=== PATIENT | male | born 1955 | race Caucasian/White ===

== ENCOUNTER 2018-06-14 05:44 | Inpatient (IN) ==
[2018-06-14] MEDS ORDERED: Chlorhexidine Gluconate 2% 1 Pack (2 Cloths) TOPICAL ONE (06:06)
[2018-06-14] MEDS ORDERED: Chlorhexidine 4% Topical 120 APPLIC/120 ML Bottle TOPICAL SCH (06:15)
[2018-06-14] MEDS ORDERED: Bisacodyl 10 MG Supp RECTAL PRN (06:54)
[2018-06-14] MEDS ORDERED: Zolpidem Tartrate 5 MG Tablet PO PRN (06:54)
[2018-06-14] MEDS ORDERED: Post-op Orders (for Pharmacy) OTHER STA (06:54)
[2018-06-14] MEDS ORDERED: HYDROmorphone PF Inj 1 MG/ML Ampul IV.PUSH PRN (06:54)
[2018-06-14] MEDS ORDERED: Vancomycin Inj 1,000 MG in Sodium Chlor 0.9% Inj 250 ML IV.SIG SCH (07:00)
[2018-06-14] MEDS ORDERED: Dexamethasone Inj 20 MG/5 ML Vial IV.PUSH SCH (07:00)
[2018-06-14] MEDS ORDERED: ceFAZolin 2 GM Premix Inj 2 GM/50 ML PIGGYBACK IV.SIG SCH (07:00)
[2018-06-14] MEDS ORDERED: Sodium Chlor 0.9% Inj 500 ML IV.SIG SCH (07:00)
[2018-06-14] MEDS ORDERED: fentaNYL Citrate Inj 250 MCG/5 ML Ampul ONE (07:08)
[2018-06-14] MEDS ORDERED: Morphine Inj 4 MG/ML Vial ONE (07:08)
[2018-06-14] MEDS ORDERED: Propofol Inj 500 MG/50 ML Vial ONE (07:24)
[2018-06-14] MEDS ORDERED: Sodium Chlor 0.9% Inj 100 ML, Tranexamic Acid Inj 3,000 MG P-ARTICULR SCH ×2 (08:30)
[2018-06-14] MEDS ORDERED: Tranexamic Acid Inj 1,035 MG in Sodium Chlor 0.9% Inj 100 ML IV.SIG SCH (08:30)
[2018-06-14] MEDS ORDERED: Sodium Chlor 0.9% Inj 40 ML, Bupivacaine Liposo PF 1.3% Inj 20 ML P-ARTICULR SCH ×2 (08:30)
--- NOTE | 2018-06-14 10:01 | P.OP ---
Procedure: PREOPERATIVE DIAGNOSIS: Right hip osteoarthritis. POSTOPERATIVE DIAGNOSIS: Right hip osteoarthritis. PROCEDURE PERFORMED: Right total hip arthroplasty. SURGEON: Dr. Gerard Drew M.D. SUPPLY ANALYST: ROCIO Townsend. ANESTHESIA: General. ESTIMATED BLOOD LOSS: 250 mL. COMPLICATIONS: None. IMPLANTS USED: Depuy Corail femoral stem 13 standard Nogal Gripsion Cup [] 56 Poly insert liner neutral [] 36 x 56 femoral head [] 36 mm ceramic neck length [] +5 JUSTIFICATION: This patient presents to the undersigned at the orthopedic clinic with chief complaints of severe Right hip pain. The pain is severe and constant and interferes with activities of daily living. The patient has failed greater than 3 months of nonoperative conservative treatment to include analgesic and nonsteroidal anti-inflammatory medications, physical therapy, cortisone injections, activity modification, weight loss, home exercise program, and use of ambulatory assistive aids. X-rays of right hip reveal severe osteoarthritis with [id number] joint space narrowing, subchondral sclerosis, subchondral cysts, osteophyte formation with subluxation. The patient was counseled on risks, benefits, and alternatives to a total hip arthroplasty. The risks were discussed, which include, but are not limited to, anesthesia, bleeding, infection, damage to nerves and blood vessels , pain, stiffness, fracture, dislocations, leg length discrepancy, failure of components, blood clots, pulmonary embolus, and even . The patient favored the benefits over the risks, did wish to proceed with surgery. PROCEDURE IN DETAIL: Written consent was obtained. The patient was identified by name, taken to the operating room and placed supine on the operating table. General anesthesia was administered. The patient was preoperative IV antibiotics. The patient right and left feet were placed in the padded traction boots. The right hip and lower extremity was then prepped and draped using isopropyl alcohol, Hibiclens solution and ChloraPrep solution. After a timeout was performed, a longitudinal incision was made over the anterior aspect of the right hip. The fascia vero was incised. Dissection was carried over the tensor fascia vero beneath the rectus femoris. After exposure of the anterior capsule, a capsulotomy incision was performed. An oscillating saw was used to perform a femoral neck cut. The osteoarthritic femoral head and neck was removed. A 10 blade scalpel was used to excise the labrum. Sequential reaming of the acetabulum was performed. Subsequently a porous-coated titanium acetabular cup was implanted in a press manner in approximately 45 degrees of abduction and 10 degrees of anteversion. There was good purchase and fixation after insertion of the acetabular cup. The cup was tested manually and noted to have excellent stability and fixation. A neutral highly cross-linked polyethylene liner was placed within the cup. The liner was impacted in place for fixation and tested for stability. Attention was turned to the femur where the leg was externally rotated, extended and adducted. The capsule was released off the undersurface of the greater trochanter to allow for elevation and lateralization of the femur. A box cutting osteotome was used to gain entrance into the intramedullary canal of the femur. This was followed by a canal finder and sequential broaching. A calcar planer to plane the calcar. A trial head and neck combination were evaluated prior to implantation of final components. With the final implants placed, the leg could achieve external rotation of 70 degrees and extension to the the ground without evidence of anterior instability or impingement. Soft tissue tension felt appropriate. Fluoroscopic imaging showed appropriate implantation of components. The Surgical wound was thoroughly irrigated with sterile saline Pulse Lavage antibiotic impregnated solution. The fascial layer was closed with #1 Vicryl suture, subcutaneous layer with 2-0 Vicryl sutures. The skin was closed with Dermabond. Sterile dressing applied. No intraoperative complications noted. Mann Ruffin, Physician Farm Labor Contractor, Certified was present for the entire procedure to include the patient position, the procedure itself. The medical necessity of a physician project assistant was indicated in this case due to the complexity of the procedure. He assisted with position of the patient along with the ear itself. During the procedure he assisted with exposure and the retraction of muscle, tendon, bone, and neurovascular vessel structures. He assisted with the preparation of bone and also implantation of the prosthetic replacement. There was a electroplating technician in the room that assisted with management of instruments, but was not available to assist with the surgery itself. Gerard Myoer MD Surgeon: Gerard Moyer MD
--- NOTE | 2018-06-14 11:40 | XR ---
EXAM DATE: 06/14/2018 11:28 AM EST AGE/SEX: 62 years / Male INDICATIONS: Post-op total right hip arthroplasty. CLINICAL DATA: This is the patient's initial encounter. Patient reports that signs and symptoms have been present for 1 day and indicates a pain score of 0/10. MEDICAL/SURGICAL HISTORY: None. None. COMPARISON: No prior exams available for comparison. FINDINGS: The patient is status post a total hip arthroplasty. Prosthesis is well-seated. Alignment is anatomic . A fracture is not appreciated. CONCLUSION: Anatomic alignment. Preston Stokes MD FACR Electronically signed by: Preston Stokes MD Board Certified Radiologist 06/14/2018 11:39 AM EST
[2018-06-14] MEDS ORDERED: *morphine SULFATE 4 MG/ML PERIprocedure ONLY ONE (12:16)
[2018-06-14] MEDS ORDERED: Atropine Inj 1 MG/10 ML Syringe ONE (12:46)
[2018-06-14] MEDS ORDERED: Glycopyrrolate 0.2 MG/ML Vial ONE (12:46)
--- NOTE | 2018-06-14 13:42 | XR ---
EXAM DATE: 06/14/2018 1:38 PM EST AGE/SEX: 62 years / Male INDICATIONS: Right total hip arthroplasty. CLINICAL DATA: This is the patient's initial encounter. Patient reports that signs and symptoms have been present for 1 day and indicates a pain score of Nonresponsive. MEDICAL/SURGICAL HISTORY: Non-responsive. Non-responsive. COMPARISON: No prior exams available for comparison. FINDINGS: [facility] intraoperative views of the right hip show total arthroplasty. Femoral and acetabular components are appropriately positioned without fracture or dislocation. CONCLUSION: Appropriate postoperative appearance of the right hip status post total arthroplasty. Electronically signed by: Micheal Rose MD Board Certified Radiologist 06/14/2018 1:41 PM EST
--- NOTE | 2018-06-14 14:26 | P.DCO ---
- Physical Therapy Physical Therapy: Gait training, Safety evaluation, Transfer training, bed to chair Hip: Total hip, Protocol: Right Right Lower Extremity Weight Bearing: Weight bearing as tolerated - Nursing RN days per week: 1 Nursing: Dressing changes Dressing changes: Daily dressing change - Certification Need for Home Health services: I have seen patient Gerard Ocampo on 06/14/18. My clinical findings support the need for the requested home health care services because: Need for Home Health Services: Limited ability to care for self, High risk of falls Homebound Certification: I certify that my clinical findings support that this patient is homebound because: Homebound Certification: Post-op weakness, Unsteady gait/balance
[2018-06-14] MEDS: ceFAZolin 2 GM Premix Inj 2 GM/50 ML PIGGYBACK IV.SIG SCH ×2 (14:45→20:00)
[2018-06-14] MEDS: Multivitamin/Minerals Therapeutic Tablet PO SCH ×2 (15:09→20:45)
[2018-06-14] MEDS: Senna/Docusate Sodium 8.6/50 MG Tablet PO SCH ×2 (15:09→20:45)
[2018-06-14 17:05] LABS: Baso % (Auto) 0.1 % (0.0-2.0); Hematocrit 32.2 % (39.0-51.0); Hemoglobin 11.2 gm/dL (13.0-17.0); Lymph # (Auto) 0.5 th/mm3 (1.0-4.8); Lymph % (Auto) 3.9 % (9.0-44.0); Mean Corpuscular HGB Conc 34.8 % (32.0-36.0); Mean Corpuscular Hemoglobin 31.3 pg (27.0-34.0); Mean Corpuscular Volume 89.8 fL (80.0-100.0); Mean Platelet Volume 9.4 fL (7.0-11.0); Mono # (Auto) 0.3 th/mm3 (0.0-0.9); Mono % (Auto) 2.5 % (0.0-8.0); Neut # (Auto) 12.4 th/mm3 (1.8-7.7); Neut % (Auto) 93.5 % (16.0-70.0); Platelet Count 176 th/mm3 (150-450); Red Blood Count 3.58 mil/mm3 (4.50-5.90); Red Cell Distribution Width 12.8 % (11.6-17.2); White Blood Count 13.3 th/mm3 (4.0-11.0)
[2018-06-14 17:30] LABS: Calcium 7.9 mg/dL (8.5-10.1); Magnesium 1.2 mg/dL (1.5-2.5); Potassium 3.3 meq/L (3.5-5.1)
[2018-06-14 17:34] LABS: Troponin I 0.07 ng/mL (0.02-0.05)
--- NOTE | 2018-06-14 19:06 | P.PNIM ---
62M s/p hip replacement surgery had spinal anesthesia with penile and scrotal numbness that persisted most of the day. He had 3 episodes of hypotension and bradycardia, most likely from vasodilitory effect of spinal anesthesia. He will be observed in the [facility] overnight. His penile and scrotal sensation has returned, which is a good sign, but I'm adding pressors for PRN use if episodes return.
[2018-06-14] MEDS: Mag Sulf 1 gm/100 ml Premix 100 ML IV.SIG SCH ×2 (19:11→21:00)
[2018-06-14] MEDS: Sod Chloride 0.9% Inj 1,000 ML IV.CONT SCH (19:26)
[2018-06-15 04:54] LABS: Hematocrit 31.8 % (39.0-51.0); Hemoglobin 11.3 gm/dL (13.0-17.0)
[2018-06-15] MEDS: ceFAZolin 2 GM Premix Inj 2 GM/50 ML PIGGYBACK IV.SIG SCH (07:14)
[2018-06-15] MEDS: Sod Chloride 0.9% Inj 1,000 ML IV.CONT SCH ×2 (08:05→15:47)
--- NOTE | 2018-06-15 08:16 | P.PNOP ---
Subjective Interval history: pain controlled. diaphoretic and hypotensive yesterday. feeling a little better this am. Physical Exam Vital signs: Vital Signs 06/14/18 10:12 06/14/18 10:15 06/14/18 10:30 Temperature 96.8 F L Pulse Rate 52 L 46 L 51 L Respiratory Rate 25 H 14 16 Blood Pressure 103/59 L 106/55 L Pulse Oximetry 100 100 100 06/14/18 10:32 06/14/18 10:35 06/14/18 10:45 Temperature Pulse Rate 45 L 47 L Respiratory Rate 15 14 Blood Pressure 112/60 110/62 Pulse Oximetry 100 100 100 06/14/18 11:00 06/14/18 11:01 06/14/18 11:15 Temperature 97.8 F Pulse Rate 47 L 46 L 44 L Respiratory Rate 12 14 16 Blood Pressure 120/58 L 117/58 L Pulse Oximetry 100 98 100 06/14/18 11:30 06/14/18 11:45 06/14/18 12:00 Temperature Pulse Rate 42 L 51 L 50 L Respiratory Rate 10 L 22 14 Blood Pressure 113/65 119/68 Pulse Oximetry 100 100 100 06/14/18 12:15 06/14/18 12:30 06/14/18 12:43 Temperature Pulse Rate 52 L 53 L 35 L Respiratory Rate 15 13 14 Blood Pressure 102/60 57/35 L Pulse Oximetry 100 99 100 06/14/18 12:44 06/14/18 12:45 06/14/18 12:46 Temperature Pulse Rate 31 L 32 L 32 L Respiratory Rate 16 17 15 Blood Pressure 63/38 L 78/40 L Pulse Oximetry 99 100 100 06/14/18 12:47 06/14/18 12:49 06/14/18 13:00 Temperature Pulse Rate 32 L 40 L 44 L Respiratory Rate 14 17 16 Blood Pressure 81/43 L 110/56 L 125/62 Pulse Oximetry 100 100 99 06/14/18 13:15 06/14/18 13:30 06/14/18 13:40 Temperature Pulse Rate 56 L 56 L 59 L Respiratory Rate 18 16 16 Blood Pressure 113/67 Pulse Oximetry 100 100 99 06/14/18 13:45 06/14/18 14:00 06/14/18 14:15 Temperature Pulse Rate 57 L 60 57 L Respiratory Rate 15 15 13 Blood Pressure 117/59 L Pulse Oximetry 99 98 100 06/14/18 14:30 06/14/18 14:45 06/14/18 15:00 Temperature Pulse Rate 62 59 L 60 Respiratory Rate 14 16 15 Blood Pressure 112/62 Pulse Oximetry 99 100 100 06/14/18 15:15 06/14/18 15:20 06/14/18 15:21 Temperature Pulse Rate 65 63 Respiratory Rate 18 22 Blood Pressure 115/61 Pulse Oximetry 100 06/14/18 15:24 06/14/18 15:27 06/14/18 15:30 Temperature Pulse Rate 60 57 L Respiratory Rate 17 15 Blood Pressure 91/53 L 110/64 Pulse Oximetry 06/14/18 15:45 06/14/18 15:54 06/14/18 15:57 Temperature Pulse Rate 59 L 60 44 L Respiratory Rate 15 15 21 Blood Pressure 99/55 L 75/42 L Pulse Oximetry 99 100 06/14/18 15:58 06/14/18 16:00 06/14/18 16:15 Temperature 97.4 F L Pulse Rate 45 L 53 L 54 L Respiratory Rate 17 15 15 Blood Pressure 80/45 L 102/53 L Pulse Oximetry 99 100 100 06/14/18 16:23 06/14/18 16:30 06/14/18 16:31 Temperature Pulse Rate 57 L 57 L 61 Respiratory Rate 18 19 17 Blood Pressure 131/65 131/66 Pulse Oximetry 100 100 06/14/18 16:45 06/14/18 16:49 06/14/18 16:50 Temperature Pulse Rate 68 58 L 56 L Respiratory Rate 20 16 16 Blood Pressure 137/69 136/72 Pulse Oximetry 100 100 100 06/14/18 17:00 06/14/18 17:10 06/14/18 17:15 Temperature Pulse Rate 60 63 58 L Respiratory Rate 14 15 13 Blood Pressure 133/74 134/80 Pulse Oximetry 100 100 99 06/14/18 17:30 06/14/18 17:45 06/14/18 18:00 Temperature Pulse Rate 61 67 68 Respiratory Rate 19 15 21 Blood Pressure 133/68 111/64 Pulse Oximetry 99 97 98 06/14/18 18:08 06/14/18 18:12 06/14/18 18:14 Temperature 97.6 F Pulse Rate 72 56 L 53 L Respiratory Rate 16 19 18 Blood Pressure 130/69 95/53 L 108/57 L Pulse Oximetry 100 98 100 06/14/18 18:15 06/14/18 18:19 06/14/18 18:22 Temperature Pulse Rate 52 L 63 58 L Respiratory Rate 12 18 14 Blood Pressure 107/57 L 112/61 Pulse Oximetry 99 99 98 06/14/18 18:30 06/14/18 18:45 06/14/18 19:00 Temperature Pulse Rate 59 L 57 L 68 Respiratory Rate 13 15 14 Blood Pressure 124/62 126/73 Pulse Oximetry 96 99 06/14/18 19:15 06/14/18 19:30 06/14/18 19:45 Temperature Pulse Rate 60 61 61 Respiratory Rate 14 16 14 Blood Pressure 134/68 Pulse Oximetry 06/14/18 20:00 06/14/18 20:30 06/14/18 20:40 Temperature 97.7 F Pulse Rate 62 66 64 Respiratory Rate 14 12 13 Blood Pressure 122/62 138/64 Pulse Oximetry 06/14/18 20:44 06/14/18 21:00 06/14/18 22:00 Temperature Pulse Rate 66 67 67 Respiratory Rate 16 19 17 Blood Pressure 128/68 136/71 129/63 Pulse Oximetry 100 100 06/15/18 00:00 06/15/18 01:00 06/15/18 01:23 Temperature Pulse Rate 65 67 67 Respiratory Rate 17 13 20 Blood Pressure 122/59 L 123/60 112/51 L Pulse Oximetry 98 99 99 06/15/18 01:30 06/15/18 01:41 06/15/18 02:00 Temperature Pulse Rate 57 L 69 58 L Respiratory Rate 13 23 10 L Blood Pressure 108/53 L 112/58 L 113/57 L Pulse Oximetry 98 100 100 06/15/18 03:00 06/15/18 04:00 06/15/18 05:00 Temperature Pulse Rate 61 73 61 Respiratory Rate 10 L 15 12 Blood Pressure 141/63 H 111/56 L Pulse Oximetry 99 100 99 Intake & Output 06/14/18 06/15/18 06/15/18 18:59 06:59 18:59 Intake Total 1010 / 1010 150 / 150 1050 / 1050 Output Total 750 / 750 750 / 750 Balance 260 / 260 -600 / -600 1050 / 1050 Weight 69.3 kg 72.5 kg Intake: IV 50 / 50 150 / 150 1050 / 1050 NS Inj 1,000 ML @ 100 mls/hr IV 1000 / 1000 .CONT .Q10H AMNA Rx#:[id number] Magnesium Sulfate 1 gm/D5W 100 100 / 100 ml Premix 100 ML @ 100 mls/hr IV.SIG Q1H AMNA Rx#:[id number] Ancef 2 GM Premix Inj 2 gm In 50 / 50 50 / 50 50 / 50 50 ml @ 100 mls/hr IV.SIG INHALATION THERAPY AIDE AMNA Rx#:[id number] Oral 960 / 960 Output: Urine Amount (Catheter) 750 / 750 750 / 750 Straight 750 / 750 750 / 750 Other: Weight On Admission 69.3 kg Narrative: in bed, nad dressing c/d/i neg homans nvi thigh soft - Urinary Catheter Management Straight Cath placed during this visit: yes Reason for continuing: Not indwelling catheter Insertion date: 06/15/18 Insertion time: 04:00 Results - Labs CBC & Chem 7: 06/15/18 03:33 06/14/18 16:24 Laboratory Results - last 24 hr 06/14/18 06/14/18 06/14/18 07:25 16:24 16:24 WBC 13.3 H RBC 3.58 L Hgb 11.2 L Hct 32.2 L MCV 89.8 MCH 31.3 MCHC 34.8 RDW 12.8 Plt Count 176 MPV 9.4 Neut % (Auto) 93.5 H Lymph % (Auto) 3.9 L [place] % (Auto) 2.5 Eos % (Auto) 0.0 Baso % (Auto) 0.1 Neut # (Auto) 12.4 H Lymph # (Auto) 0.5 L [place] # (Auto) 0.3 Eos # (Auto) 0.0 Baso # (Auto) 0.0 WBC Differential . Differential Comment Auto diff final Sodium Potassium Chloride Carbon Dioxide Anion Gap BUN Creatinine Estimated GFR Random Glucose Calcium Magnesium Troponin I Cancelled Blood Type O Negative Blood Type Recheck Required Antibody Screen Negative 06/14/18 06/14/18 06/15/18 16:24 16:24 03:33 WBC RBC Hgb 11.3 L Hct 31.8 L MCV MCH MCHC RDW Plt Count MPV Neut % (Auto) Lymph % (Auto) [place] % (Auto) Eos % (Auto) Baso % (Auto) Neut # (Auto) Lymph # (Auto) [place] # (Auto) Eos # (Auto) Baso # (Auto) WBC Differential Differential Comment Sodium 133 L Potassium 3.3 L Chloride 94 L Carbon Dioxide 29.0 Anion Gap 10 BUN 11 Creatinine 1.40 H Estimated GFR 52 L Random Glucose 224 H Calcium 7.9 L Magnesium 1.2 L Cancelled Troponin I 0.07 H Blood Type Blood Type Recheck Antibody Screen - Imaging Impressions Hip X-Ray 06/14/18 00:00 CONCLUSION: Appropriate postoperative appearance of the right hip status post total arthroplasty. Hip X-Ray 06/14/18 06:53 CONCLUSION: Anatomic alignment. Preston Stokes MD FACR Assessment and Plan - Ortho Post Op Day # 1 - Assessment and Plan s/p R OMEGA wbat maintain dressing asa 81 transferred to ICU, diaphoresis and hypotensive med management d/c planning home with [facility] and pt - hold until medically stable f/up dr. galdamez 2 weeks
[2018-06-15] MEDS: Multivitamin/Minerals Therapeutic Tablet PO SCH (08:27)
[2018-06-15] MEDS: Senna/Docusate Sodium 8.6/50 MG Tablet PO SCH (08:27)
[2018-06-15 12:18] VITALS: TEMP 97.9
--- NOTE | 2018-06-15 13:33 | P.CON ---
History of Present Illness Consult date: 06/15/18 Requesting Physician: Gerard Moyer Reason for Consult: Medical management-episode of hypotension Primary Care Provider: [facility] History of Present Illness: Patient is a very pleasant 62-year-old male with no significant past medical history who was admitted under orthopedic services and underwent right total hip arthroplasty on June 14, 1999 patient states baseline is very independent and actually very athletic go swimming send to [employer] [place] almost on a daily basis. However for the past 10 years now has been having on and off pain worsening over this past year on follow-up bone to bone per report on x-ray. And finally admitted and had right total hip arthroplasty. Postoperatively to have episode of hypotension. Did not need any vasopressors. Review of labs no acute drop in hemoglobin hematocrit. As outpatient medications takes magnesium supplement 500 mg daily per patient he runs low magnesium. Social history denies smoking. 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 Family history positive for diabetes in grandmother. As outpatient medications just take magnesium supplement 500 mg daily Currently in-house patient is on [place] as needed for pain Aspirin 81 mg twice daily for DVT prophylaxis. Review of Systems Prior to this admission denies any chronic headaches nausea vomiting denies any bowel movement changes No orthopnea no paroxysmal nocturnal dyspnea Denies any urinary symptoms Denies any leg swelling PMFSH - History History Provided By: Patient - Medical History Medical History: Medical History (Last Reviewed 06/15/18 @ 08:21 by [employer]) Heart palpitations Hx of subdural hemorrhage Hypomagnesemia Left hip pain Recovering alcoholic in remission Right hip pain Wears contact lenses - Surgical History Surgical History: Surgical History (Last Reviewed 06/15/18 @ 08:21 by [employer]) Hx of bilateral inguinal hernia repair S/P subdural hematoma evacuation - Social History I have reviewed the patient's Social History: Yes - Tobacco History Second Hand Smoke Exposure: No Smoking Status: Never smoker - Alcohol History How Often Do You Have a Drink Containing Alcohol: Never - Substance Use History Substance History: Past History - Substance Use Type Alcohol Status: Sustained Remission Route Used: By Mouth - Travel History Recent Travel in the [place] Within the Last 8 Weeks: No Recent Travel Out of the Country Within the Last 8 Weeks: No - Immunization History Tetanus Immunization: <5 Years Hx Influenza Vaccine This Season: Yes Medications and Allergies Active Medications: Active Medications Hydrocodone Bitart/Acetaminophen ([place] 7.5/325) 2 tab PO Q6H PRN PRN Reason: PAIN SCALE 5 TO 10 Last Admin: 06/15/18 06:02 Dose: 2 tab Hydrocodone Bitart/Acetaminophen ([place] 7.5/325) 1 tab PO Q4H PRN PRN Reason: PAIN LESS THAN 5 ON SCALE Last Admin: 06/15/18 12:06 Dose: 1 tab Al Hydroxide/Mg Hydroxide (Milk Of Magnesia Liq) 30 ml PO BID PRN PRN Reason: Mild Constipation Aspirin (Aspirin Chew) 81 mg PO BID [facility] Last Admin: 06/15/18 08:27 Dose: 81 mg Bisacodyl (Dulcolax Supp) 10 mg RECTAL DAILY PRN PRN Reason: SEVERE CONSITIPATION Chlorhexidine Gluconate (Hibiclens 4% Topical) 1 applicatio TOPICAL ONCE [facility] Stop: 06/18/18 06:14 Diphenhydramine HCl (Benadryl) 25 mg PO Q6H PRN PRN Reason: ITCHING Hydromorphone HCl (Dilaudid Pf Inj) 1 mg IV.PUSH Q3H PRN PRN Reason: BREAKTHROUGH PAIN Cefazolin Sodium/Dextrose (Ancef 2 Gm Premix Inj) 2 gm in 50 mls @ 100 mls/hr IV.SIG LOG CHIPPER OPERATOR [facility] Stop: 06/18/18 06:59 Last Infusion: 06/15/18 08:05 Dose: Infused Vancomycin HCl 1,000 mg/ (Sodium Chloride) 250 mls @ 250 mls/hr IV.SIG LOG CHIPPER OPERATOR [facility] Stop: 06/17/18 06:08 Lactated Ringer's (Lr 1000 Ml Inj) 1,000 mls @ 80 mls/hr IV.CONT .[id number] [facility] Last Admin: 06/15/18 11:36 Dose: Not Given Norepinephrine Bitartrate (Levophed-Dextrose 4 Mg/250 Ml Drip) 4 mg in 250 mls @ 7.5 mls/hr IV.SIG TITRATE PRN; Protocol PRN Reason: Per Protocol Sodium Chloride (Ns Inj) 1,000 mls @ 100 mls/hr IV.CONT .Q10H [facility] Last Admin: 06/15/18 08:05 Dose: 100 mls/hr Lactulose (Lactulose Liq) 30 ml PO DAILY PRN PRN Reason: SEVERE CONSITIPATION Multivitamins/Minerals (Theragran-M) 1 tab PO BID [facility] Stop: 08/13/18 08:59 Last Admin: 06/15/18 08:27 Dose: 1 tab Ondansetron HCl (Zofran Inj) 4 mg IV.PUSH Q6H PRN PRN Reason: NAUSEA OR VOMITING Povidone Iodine (Betadine 7.5% Scrub) 1 applicatio TOPICAL ONCE [facility] Stop: 06/18/18 06:59 Senna/Docusate Sodium (Luma-Colace) 1 tab PO BID [facility] Last Admin: 06/15/18 08:27 Dose: 1 tab Sennosides (Senokot) 17.2 mg PO BID PRN PRN Reason: Moderate Constipation Sodium Chloride (Ns Flush) 2 ml IV.FLUSH UNSCH PRN PRN Reason: FLUSH AFTER USING IV ACCESS Sodium Chloride (Ns Flush) 2 ml IV.FLUSH BID [facility] Last Admin: 06/15/18 08:27 Dose: 2 ml Terbutaline Sulfate (Brethine Inj) 1 mg SQ UNSCH PRN PRN Reason: For Extravasation Zolpidem Tartrate (Ambien) 5 mg PO HS PRN PRN Reason: INSOMNIA Allergies Allergy/AdvReac Type Severity Reaction Status Date / Time clindamycin Allergy Severe Arrhythmias Verified 06/14/18 07:10 Home Medications Medication Instructions Recorded Confirmed Type magnesium 500 mg PO DAILY 06/10/18 06/14/18 History vit B1 [id number] [B 1 tab PO DAILY 06/10/18 06/14/18 History Complex w-Vit C] Physical Exam Vital signs: Vital Signs 06/14/18 13:30 06/14/18 13:40 06/14/18 13:45 Temperature Pulse Rate 56 L 59 L 57 L Respiratory Rate 16 16 15 Blood Pressure 113/67 Pulse Oximetry 100 99 99 06/14/18 14:00 06/14/18 14:15 06/14/18 14:30 Temperature Pulse Rate 60 57 L 62 Respiratory Rate 15 13 14 Blood Pressure 117/59 L Pulse Oximetry 98 100 99 06/14/18 14:45 06/14/18 15:00 06/14/18 15:15 Temperature Pulse Rate 59 L 60 65 Respiratory Rate 16 15 18 Blood Pressure 112/62 Pulse Oximetry 100 100 100 06/14/18 15:20 06/14/18 15:21 06/14/18 15:24 Temperature Pulse Rate 63 Respiratory Rate 22 Blood Pressure 115/61 91/53 L Pulse Oximetry 06/14/18 15:27 06/14/18 15:30 06/14/18 15:45 Temperature Pulse Rate 60 57 L 59 L Respiratory Rate 17 15 15 Blood Pressure 110/64 Pulse Oximetry 06/14/18 15:54 06/14/18 15:57 06/14/18 15:58 Temperature Pulse Rate 60 44 L 45 L Respiratory Rate 15 21 17 Blood Pressure 99/55 L 75/42 L 80/45 L Pulse Oximetry 99 100 99 06/14/18 16:00 06/14/18 16:15 06/14/18 16:23 Temperature 97.4 F L Pulse Rate 53 L 54 L 57 L Respiratory Rate 15 15 18 Blood Pressure 102/53 L 131/65 Pulse Oximetry 100 100 06/14/18 16:30 06/14/18 16:31 06/14/18 16:45 Temperature Pulse Rate 57 L 61 68 Respiratory Rate 19 17 20 Blood Pressure 131/66 Pulse Oximetry 100 100 100 06/14/18 16:49 06/14/18 16:50 06/14/18 17:00 Temperature Pulse Rate 58 L 56 L 60 Respiratory Rate 16 16 14 Blood Pressure 137/69 136/72 133/74 Pulse Oximetry 100 100 100 06/14/18 17:10 06/14/18 17:15 06/14/18 17:30 Temperature Pulse Rate 63 58 L 61 Respiratory Rate 15 13 19 Blood Pressure 134/80 133/68 Pulse Oximetry 100 99 99 06/14/18 17:45 06/14/18 18:00 06/14/18 18:08 Temperature 97.6 F Pulse Rate 67 68 72 Respiratory Rate 15 21 16 Blood Pressure 111/64 130/69 Pulse Oximetry 97 98 100 06/14/18 18:12 06/14/18 18:14 06/14/18 18:15 Temperature Pulse Rate 56 L 53 L 52 L Respiratory Rate 19 18 12 Blood Pressure 95/53 L 108/57 L Pulse Oximetry 98 100 99 06/14/18 18:19 06/14/18 18:22 06/14/18 18:30 Temperature Pulse Rate 63 58 L 59 L Respiratory Rate 18 14 13 Blood Pressure 107/57 L 112/61 124/62 Pulse Oximetry 99 98 96 06/14/18 18:45 06/14/18 19:00 06/14/18 19:15 Temperature Pulse Rate 57 L 68 60 Respiratory Rate 15 14 14 Blood Pressure 126/73 Pulse Oximetry 99 06/14/18 19:30 06/14/18 19:45 06/14/18 20:00 Temperature 97.7 F Pulse Rate 61 61 62 Respiratory Rate 16 14 14 Blood Pressure 134/68 122/62 Pulse Oximetry 06/14/18 20:30 06/14/18 20:40 06/14/18 20:44 Temperature Pulse Rate 66 64 66 Respiratory Rate 12 13 16 Blood Pressure 138/64 128/68 Pulse Oximetry 06/14/18 21:00 06/14/18 22:00 06/15/18 00:00 Temperature Pulse Rate 67 67 65 Respiratory Rate 19 17 17 Blood Pressure 136/71 129/63 122/59 L Pulse Oximetry 100 100 98 06/15/18 01:00 06/15/18 01:23 06/15/18 01:30 Temperature Pulse Rate 67 67 57 L Respiratory Rate 13 20 13 Blood Pressure 123/60 112/51 L 108/53 L Pulse Oximetry 99 99 98 06/15/18 01:41 06/15/18 02:00 06/15/18 03:00 Temperature Pulse Rate 69 58 L 61 Respiratory Rate 23 10 L 10 L Blood Pressure 112/58 L 113/57 L Pulse Oximetry 100 100 99 06/15/18 04:00 06/15/18 05:00 06/15/18 06:00 Temperature Pulse Rate 73 61 70 Respiratory Rate 15 12 23 Blood Pressure 141/63 H 111/56 L Pulse Oximetry 100 99 100 06/15/18 06:01 06/15/18 07:00 06/15/18 07:01 Temperature Pulse Rate 65 62 60 Respiratory Rate 15 16 12 Blood Pressure 141/65 H 110/55 L Pulse Oximetry 100 99 98 06/15/18 07:51 06/15/18 08:00 06/15/18 08:01 Temperature 97.6 F Pulse Rate 72 69 72 Respiratory Rate 14 13 21 Blood Pressure 137/63 136/64 Pulse Oximetry 100 99 100 06/15/18 09:00 06/15/18 09:01 06/15/18 09:27 Temperature Pulse Rate 55 L 72 84 Respiratory Rate 12 20 20 Blood Pressure 135/63 140/60 Pulse Oximetry 99 99 06/15/18 09:34 06/15/18 10:00 06/15/18 10:01 Temperature Pulse Rate 70 70 Respiratory Rate 17 21 Blood Pressure 137/63 133/63 Pulse Oximetry 100 06/15/18 11:00 06/15/18 11:01 06/15/18 12:00 Temperature 97.9 F Pulse Rate 58 L 68 Respiratory Rate 12 19 Blood Pressure 111/64 Pulse Oximetry 100 06/15/18 12:01 Temperature Pulse Rate 68 Respiratory Rate 38 H Blood Pressure 134/76 Pulse Oximetry 97 Intake & Output 06/14/18 06/15/18 06/15/18 18:59 06:59 18:59 Intake Total 1010 / 1010 150 / 150 1050 / 1050 Output Total 750 / 750 750 / 750 Balance 260 / 260 -600 / -600 1050 / 1050 Weight 69.3 kg 72.5 kg Intake: IV 50 / 50 150 / 150 1050 / 1050 NS Inj 1,000 ML @ 100 mls/hr IV 1000 / 1000 .CONT .Q10H [facility] Rx#:[id number] Magnesium Sulfate 1 gm/D5W 100 100 / 100 ml Premix 100 ML @ 100 mls/hr IV.SIG Q1H [facility] Rx#:[id number] Ancef 2 GM Premix Inj 2 gm In 50 / 50 50 / 50 50 / 50 50 ml @ 100 mls/hr IV.SIG LOG CHIPPER OPERATOR [facility] Rx#:[id number] Oral 960 / 960 Output: Urine Amount (Catheter) 750 / 750 750 / 750 Straight 750 / 750 750 / 750 Other: Weight On Admission 69.3 kg Narrative: Awake alert oriented x3 not in any form of distress Anicteric sclera Neck supple Chest lungs clear breath sounds no rales Regular rhythm currently heart rate is 68/min sinus Abdomen soft nontender with good bowel sounds Right hip with postop dressing in place Bilateral leg no swelling no calf tenderness Good peripheral pulses - Urinary Catheter Management Straight Cath placed during this visit: yes Reason for continuing: Not indwelling catheter Insertion date: 06/15/18 Insertion time: 04:00 Results - Labs CBC & Chem 7: 06/15/18 03:33 06/15/18 09:14 Labs: Laboratory Results - last 24 hr 06/14/18 06/14/18 06/14/18 16:24 16:24 16:24 WBC 13.3 H RBC 3.58 L Hgb 11.2 L Hct 32.2 L MCV 89.8 MCH 31.3 MCHC 34.8 RDW 12.8 Plt Count 176 MPV 9.4 Neut % (Auto) 93.5 H Lymph % (Auto) 3.9 L [place] % (Auto) 2.5 Eos % (Auto) 0.0 Baso % (Auto) 0.1 Neut # (Auto) 12.4 H Lymph # (Auto) 0.5 L [place] # (Auto) 0.3 Eos # (Auto) 0.0 Baso # (Auto) 0.0 WBC Differential . Differential Comment Auto diff final Sodium 133 L Potassium 3.3 L Chloride 94 L Carbon Dioxide 29.0 Anion Gap 10 BUN 11 Creatinine 1.40 H Estimated GFR 52 L Random Glucose 224 H Calcium 7.9 L Magnesium 1.2 L Troponin I Cancelled 0.07 H 06/14/18 06/15/18 06/15/18 16:24 03:33 09:14 WBC RBC Hgb 11.3 L Hct 31.8 L MCV MCH MCHC RDW Plt Count MPV Neut % (Auto) Lymph % (Auto) [place] % (Auto) Eos % (Auto) Baso % (Auto) Neut # (Auto) Lymph # (Auto) [place] # (Auto) Eos # (Auto) Baso # (Auto) WBC Differential Differential Comment Sodium Potassium 3.5 Chloride Carbon Dioxide Anion Gap BUN Creatinine Estimated GFR Random Glucose Calcium Magnesium Cancelled Troponin I - Imaging Impressions Hip X-Ray 06/14/18 00:00 CONCLUSION: Appropriate postoperative appearance of the right hip status post total arthroplasty. Assessment and Plan - Plan 62-year-old male with no significant past medical history Transient hypotension-likely from post anesthesia not on any pressors vital signs stable has been up and ambulating already with PT with no dizziness Status post right total hip arthroplasty June 14, 2018 Orthopedic service following PRN pain meds Hypokalemia on initial labs. Potassium improved from repeat labs this morning History of l hypomagnesemia. We will start patient on magnesium 400 mg twice daily. Check mag level from this a.m. Hyperglycemia-on random blood sugar.-denies any history of high blood diabetes. Will check a stat random blood sugar Per patient family history of diabetes. Thank you for this consult will follow patient in-house with you if stable, can be DC this pm or in am
[2018-06-15] MEDS ORDERED: Magnesium Oxide 400 MG Tablet PO SCH (13:45)
[2018-06-15 14:12] VITALS: RESP 18; O2SAT 100
[2018-06-15 15:47] VITALS: BP 144/79; PULSE 72
--- NOTE | 2018-06-16 00:43 | ECG ---
Date Performed: 06/14/2018 Time Performed: 12:57:34 PTAGE: 62 years EKG: SINUS BRADYCARDIA ST DEVIATION AND MODERATE T-WAVE ABNORMALITY, CONSIDER INFERIOR ISCHEMIA ABNORMAL ECG PREVIOUS TRACING : 07/31/2013 05.07 Compared to previous tracing, ST/T wave changes now noted DOCTOR: Shnatanu Isbell Interpretating Date/Time 06/16/2018 00:42:26
--- NOTE | 2018-06-16 00:59 | ECG ---
Date Performed: 06/14/2018 Time Performed: 16:29:52 PTAGE: 62 years EKG: SINUS BRADYCARDIA WITH OCCASIONAL SUPRAVENTRICULAR PREMATURE COMPLEXES SEPTAL MYOCARDIAL IN FARCTION , PROBABLY OLD ST/T WAVE CHANGES INFERIORLY ABNORMAL ECG Since the PREVIOUS TRACING , no significant change noted DOCTOR: Shantanu Isbell Interpretating Date/Time 06/16/2018 00:58:34
== END 2018-06-15 16:03 | disposition home health service (06) | DRG 470 ==
LOC: HSDI 05:44 → N03 20:47
PROVIDERS: ADMIT Orthopaedic Surgery Sports Medicine; ATTEND Orthopaedic Surgery Sports Medicine
CPT/HCPCS: 73502; 76000; 80048; 82948; 82962; 83735; 84132; 84484; 85014; 85018; 85025; 86850; 86900; 86901; 93005; 94150; 97110; 97116; 97162; C1776; J0131; J0171; J0461; J0690; J1100; J2270; J2704; J3010; J3475; J7030; J7120